=== PATIENT | male | born 1990 | race Caucasian/White ===

== ENCOUNTER 2016-08-24 12:19 | Inpatient (IN) | payer OTHER ==
[~2016-08-24] VITALS: Ht 193 cm; Wt 74.2 kg
[2016-08-24 13:30] VITALS: BP 132/73
[2016-08-24 14:00] VITALS: BP 132/73
[2016-08-24] MEDS ORDERED: CELEXA20 MG PO (14:29)
[2016-08-24] MEDS ORDERED: METHIMAZOLE5 M1 PO (14:31)
[2016-08-24] MEDS ORDERED: ATIVAN1 MG PO (14:32)
[2016-08-24 14:45] LABS: BASO % 0.1 % (0.0-1.0); HEMATOCRIT 36.5 % (42.0-52.0); HEMOGLOBIN 12.6 g/dl (14.0-18.0); LYMPH # 0.8 10*3/uL (1.3-4.4); LYMPH % 7.9 % (27.0-41.0); MEAN CELL VOLUME 86.3 fl (80.0-94.0); MEAN CORPUSCULAR HGB 29.8 pg (27.0-31.0); MEAN CORPUSCULAR HGB CONC 34.5 g/dl (33.0-37.0); MEAN PLATELET VOLUME 9.6 fl (9.6-12.3); MONO # 0.2 10*3/uL (0.1-1.0); MONO % 2.3 % (3.0-9.0); NEUT # 9.2 10*3/uL (2.3-7.9); NEUT % 89.3 % (47.0-73.0); PLATELET COUNT AUTOMATED 260 10*3/uL (130-400); RED BLOOD COUNT 4.23 10*6/uL (4.50-5.90); RED CELL DISTRI WIDTH 11.7 % (0-14.5); WHITE BLOOD COUNT 10.3 10*3/uL (4.8-10.8)
[2016-08-24 14:47] LABS: BILIRUBIN NEGATIVE (NEGATIVE); BLOOD NEGATIVE (NEGATIVE); CLARITY SL CLOUDY (CLEAR); COLOR YELLOW (YELLOW); GLUCOSE NEGATIVE (NEGATIVE); KETONE NEGATIVE (NEGATIVE); LEUKO ESTERASE NEGATIVE (NEGATIVE); NITRITE NEGATIVE (NEGATIVE); PROTEIN NEGATIVE (NEGATIVE); SPECIFIC GRAVITY <= 1.005 (1.005-1.030); UROBILINOGEN 0.2 E.U./dl (0.2-1.0)
[2016-08-24 14:51] LABS: BACTERIA TRACE; EPITHELIAL CELLS 0-2; URINE REFLEX COMMENT NO (NO)
[2016-08-24 14:52] LABS: PROTHROMBIN TIME 10.6 SECONDS (9.0-12.4)
[2016-08-24 15:00] LABS: ALBUMIN 4.1 gm/dl (3.1-4.5); ALKALINE PHOSPHATASE 64 U/L (45-117); BILIRUBIN, TOTAL 0.7 mg/dl (0.2-1.0); BUN 8 mg/dl (7-24); CARBON DIOXIDE 27 mmol/L (21-32); CHLORIDE 105 mmol/L (98-107); EST GLOM FILT AFRICAN AMERICAN > 60 ml/min; GLUCOSE 115 mg/dL (65-99); POTASSIUM 3.5 mmol/L (3.5-5.1); SGOT/AST 33 IU/L (3-35); SGPT/ALT 59 U/L (12-78); SODIUM 139 mmol/L (136-145)
[2016-08-24 15:54] LABS: URINE AMPHETAMINES < 1000 (1000ng/ml); URINE BARBITURATES < 200 (200ng/ml); URINE COCAINE < 300 (300ng/ml)
[2016-08-24 16:00] VITALS: BP 129/66
[2016-08-24 20:00] VITALS: BP 120/59
[2016-08-25 00:05] VITALS: BP 112/56
[2016-08-25 04:45] VITALS: BP 106/62
[2016-08-25 08:00] VITALS: BP 113/57
[2016-08-25 12:00] VITALS: BP 92/42
[2016-08-25 16:00] VITALS: BP 112/53
[2016-08-25 20:00] VITALS: BP 123/57; BP 154/57
[2016-08-26 00:36] VITALS: BP 130/62
[2016-08-26 08:01] VITALS: BP 118/50
[2016-08-26 12:00] VITALS: BP 113/53
[2016-08-26 20:00] VITALS: BP 136/76
[2016-08-27 00:21] VITALS: BP 134/70
[2016-08-27 07:31] LABS: BASO % 0.4 % (0.0-1.0); EOS # 0.1 10*3/uL (0.0-0.4); EOS % 1.1 % (1.0-4.0); HEMATOCRIT 36.1 % (42.0-52.0); HEMOGLOBIN 12.5 g/dl (14.0-18.0); LYMPH # 2.6 10*3/uL (1.3-4.4); LYMPH % 35.2 % (27.0-41.0); MEAN CORPUSCULAR HGB 29.8 pg (27.0-31.0); MEAN CORPUSCULAR HGB CONC 34.6 g/dl (33.0-37.0); MEAN PLATELET VOLUME 10.2 fl (9.6-12.3); MONO # 0.6 10*3/uL (0.1-1.0); NEUT # 4.1 10*3/uL (2.3-7.9); NEUT % 54.9 % (47.0-73.0); PLATELET COUNT AUTOMATED 226 10*3/uL (130-400); RED CELL DISTRI WIDTH 11.5 % (0-14.5); WHITE BLOOD COUNT 7.4 10*3/uL (4.8-10.8)
[2016-08-27 07:50] LABS: EST GLOM FILT AFRICAN AMERICAN > 60 ml/min
[2016-08-27 08:00] VITALS: BP 109/62
[2016-08-27] MEDS ORDERED: VITAMIN B-11 TAB PO (10:41)
[2016-08-27] MEDS ORDERED: NATURE'S BLEND F1 MG PO (10:41)
[2016-08-27] MEDS ORDERED: THERA TABS1 TAB PO (10:41)
== END 2016-08-27 11:23 | disposition home or self-care (01) | DRG 897 ==
LOC: 5E 12:19
PROVIDERS: Internal Medicine; Internal Medicine Hospice and Palliative Medicine
DX: F11.23 Opioid dependence with withdrawal (principal); F19.20 Other psychoactive substance dependence, uncomplicated; G25.81 Restless legs syndrome; M79.1 Myalgia; E03.9 Hypothyroidism, unspecified; F41.1 Generalized anxiety disorder; F32.9 Major depressive disorder, single episode, unspecified; D64.9 Anemia, unspecified; R73.9 Hyperglycemia, unspecified; Z83.3 Family history of diabetes mellitus; Z80.8 Family history of malignant neoplasm of other organs or systems; Z79.899 Other long term (current) drug therapy

== ENCOUNTER 2020-01-10 13:18 | Inpatient (IN) | payer OTHER ==
[~2020-01-10] VITALS: Ht 195.5 cm; Wt 75.1 kg
[~2020-01-10 13:18] MED LIST: ATIVAN1 MG PO; CELEXA20 MG PO; METHIMAZOLE5 M1 PO; NATURE'S BLEND F1 MG PO; THERA TABS1 TAB PO; VITAMIN B-11 TAB PO
[2020-01-10 13:31] VITALS: BP 121/81
[2020-01-10 14:26] LABS: BASO % 0.2 % (0.0-1.0); EOS # 0.3 10*3/uL (0.0-0.4); EOS % 3.6 % (1.0-4.0); HEMATOCRIT 39.6 % (42.0-52.0); LYMPH # 1.9 10*3/uL (1.3-4.4); LYMPH % 22.9 % (27.0-41.0); MEAN CELL VOLUME 88.6 fl (80.0-94.0); MEAN CORPUSCULAR HGB 29.8 pg (27.0-31.0); MEAN CORPUSCULAR HGB CONC 33.6 g/dl (33.0-37.0); MEAN PLATELET VOLUME 9.4 fl (9.6-12.3); MONO # 0.7 10*3/uL (0.1-1.0); MONO % 8.2 % (3.0-9.0); NEUT # 5.4 10*3/uL (2.3-7.9); NEUT % 64.7 % (47.0-73.0); PLATELET COUNT AUTOMATED 358 10*3/uL (130-400); RED BLOOD COUNT 4.47 10*6/uL (4.50-5.90); RED CELL DISTRI WIDTH 11.2 % (0-14.5); WHITE BLOOD COUNT 8.3 10*3/uL (4.8-10.8)
[2020-01-10 14:26] LABS: BILIRUBIN Negative (Negative); BLOOD Negative (Negative); CLARITY Clear (Clear); COLOR Yellow (Yellow); GLUCOSE Negative (Negative); KETONE Negative (Negative); LEUKO ESTERASE Negative (Negative); NITRITE Negative (Negative); PH 6.5 (4.5-8.0); SPECIFIC GRAVITY <= 1.005 (1.001-1.030); UROBILINOGEN 0.2 E.U./dl (0.0-1.0)
[2020-01-10 14:35] LABS: URINE AMPHETAMINES < 1000 (1000ng/ml); URINE BARBITURATES < 200 (200ng/ml); URINE BENZODIAZEPINES > 200 (200ng/ml); URINE CANNABINOIDS (THC) < 50 (50ng/ml); URINE COCAINE < 300 (300ng/ml); URINE METHADONE < 300 (300ng/ml); URINE OPIATES < 300 (300ng/ml)
[2020-01-10 14:37] LABS: RBC 0-2 rbc/hpf (0-2)
[2020-01-10 14:38] LABS: BACTERIA TRACE; EPITHELIAL CELLS 0-2; WBC 0-2 wbc/hpf (0-5)
[2020-01-10 14:39] LABS: URINE PHENCYCLIDINE < 25 (25ng/ml)
[2020-01-10 14:44] LABS: ALKALINE PHOSPHATASE 109 U/L (45-117); BUN 8 mg/dl (7-24); CHLORIDE 102 mmol/L (98-107); CREATININE 0.73 mg/dL (0.70-1.30); POTASSIUM 3.7 mmol/L (3.5-5.1); SGOT/AST 22 IU/L (3-35); SGPT/ALT 40 U/L (12-78); SODIUM 137 mmol/L (136-145); TOTAL PROTEIN 8.1 gm/dL (6.4-8.2)
[2020-01-10 14:59] LABS: ACT PARTIAL THROMBO TIME 30.7 SECONDS (20.0-32.1); INTERNATIONAL NORM RATIO 0.9 (2.0-3.5)
[2020-01-10 15:00] VITALS: BP 119/64
--- NOTE | 2020-01-10 15:00 | NUR ---
29 year old MALE admitted to room # 517 for stabilization. Reports an addiction to HEROIN last used 8 HOURS AGO hours prior to admission. Compliant with admission procedure. Patient denies any anxiety, but is unable to sit still, taps toes to floor continuously, looks about room, unable to focus eyes on nurse during interview. See assessment forms for additional information about patient status.
[2020-01-10] MEDS ORDERED: ESCITALOPRAM OX10 MG PO (15:54)
[2020-01-10] MEDS ORDERED: ALPRAZOLAM0.5 M3 PO (15:56)
[2020-01-10 16:00] VITALS: BP 119/64
--- NOTE | 2020-01-10 16:31 | NUR ---
PATIENT MEETS [facility]. [facility] STAFF SPOKE WITH PATIENT. PATIENT IS UNDECIDED AT THIS TIME ON WHAT HE WANTS TO DO FOR AFTERCARE. [facility] STAFF WILL PROVIDE PATIENT WITH REFERRAL OPTIONS AND A LIST OF AA/NA MEETINGS IN HIS AREA. PORTER HALL B.A. MAGISTRATE JUDGE
--- NOTE | 2020-01-10 17:57 | NUR ---
Patient displaying withdrawal symptoms, including: irritability, anxiousness, restlessness and agitation, complicated by impulsive behavior. Patient scores a 17 ON CIWA scale. Scheduled/PRN medications provided, doctor notified of patient's agitation and AMA potential. Will continue to monitor medication effectiveness.
--- NOTE | 2020-01-10 18:20 | NUR ---
PT PACING IN ROOM REQUESTING CLONIDINE. EDUCATED PT ON MEDS ADMIN FOR [facility]. PROVIDED PT WITH TOWELS.ADVISED HIM I WOULD SPEAK WITH . NOTIFIED DR CRUMP OF PT S/S WITHDRAWAL.
[2020-01-10 20:00] VITALS: BP 141/80
--- NOTE | 2020-01-10 21:09 | NUR ---
PATIENT CURLED UP IN BED. ROCKING BACK AND FOURTH. VERY ANXIOUS. MEDICATED WITH PRN BENDADRYL, TRAZADONE AND MOTRIN. PATIENT C/O HOT AND COLD SWEATS,BODY ACHES. WILL CHECK EFFECTIVENESS.
--- NOTE | 2020-01-10 23:15 | NUR ---
PATIENT STILL REMAINS VERY ANXIOUS. PACING AROUND ROOM/HALLWAY. EARLER MEDICATIONS NOT EFFECTIVE. SCHEDULED SUBUTEX GIVEN AT THIS TIME. WILL CONTINUE TO MONITOR.
[2020-01-11] VITALS: BP 131/83
--- NOTE | 2020-01-11 00:21 | NUR ---
PATIENT ASKING FOR REQUIP FOR RESTLESS LEGS AND ACHES. REQUIP NOT DUE SO ROBAXIN GIVEN AT THIS TIME. WILL CHECK EFFECTIVENESS.
--- NOTE | 2020-01-11 00:24 | NUR ---
FIRST TRAZADONE NOT EFFECTIVE. SECOND DOSE GIVEN AT THIS TIME. WILL CHECK EFFECTIVENESS.
--- NOTE | 2020-01-11 03:47 | NUR ---
PATIENT PACING AROUND ROOM AND IN HALLWAY. VERY ANXIOUS. MEDICATED WITH VISTARIL AND BENADYRL BOTH AT THIS TIME FOR ANXIETY. WILL CONTINUE TO MONITOR.
--- NOTE | 2020-01-11 05:41 | NUR ---
PATIENT REQUESTING REQUIP MEDICATED AT THIS TIME. WILL CHECK EFFECTIVENESS.
[2020-01-11 08:00] VITALS: BP 129/75
--- NOTE | 2020-01-11 11:16 | NUR ---
PT MEDICATED WITH PRN VISTARIL FOR INCREASED ANXIETY AT THIS TIME. INITIAL LIBRIUM TAPER DOSE ALSO ADMINISTERED.
[2020-01-11 12:00] VITALS: BP 122/70
--- NOTE | 2020-01-11 14:28 | NUR ---
ROBAXIN, MOTRIN, BENTYL AND BENADRYL GIVEN PRN PER PT REQUEST FOR RESTLESS LEGS, PINS AND NEEDLES FEELNG AND ABD CRAMPS. CALL LIGHT WITHIN REACH.
--- NOTE | 2020-01-11 14:48 | NUR ---
PT MOTHER CALLED FOR AN UPDATE, UPDATE PROVIDED. QUESTIONS REGARDING OUTPT AND DISCHARGE PLANNING. STATES THEY LIVE IN [place], WILL LEFT [facility] KNOW IF THEY ARE NOT AWARE.
--- NOTE | 2020-01-11 15:28 | NUR ---
PT REPORTS PRN MEDICATIONS NOT EFFECTIVE.
[2020-01-11 16:00] VITALS: BP 126/71
--- NOTE | 2020-01-11 17:33 | NUR ---
PT COMPLAINS OF NAUSEA AND ANXIOUSNESS, PRN VISTARIL AND ZOFRAN GIVEN AT THIS TIME. SEE EMAR.
--- NOTE | 2020-01-11 18:33 | NUR ---
PT REPORTS MEDS NOT EFFECTIVE.
--- NOTE | 2020-01-11 19:27 | NUR ---
PT REQUESTING REQUIP FOR RESTLESS LGS. SEE EMAR.
--- NOTE | 2020-01-11 19:30 | NUR ---
REPORT OBTAINED FROM PREVIOUS RN. ASSUMED CARE OF PATIENT.
--- NOTE | 2020-01-11 19:49 | NUR ---
CHART CHECK COMPLETE.
[2020-01-11 20:00] VITALS: BP 125/73
--- NOTE | 2020-01-11 21:48 | NUR ---
PATIENT IS RESTING IN BED WITH EASY AND REGULAR RESPERS ON ROOM AIR. ASSESSMENT IS COMPLETE WITH NO S/S OF DISTRESS NOTED AT THIS TIME. PATIENT C/O HOT/COLD SWEATS, ANXIETY AND INSOMNIA. PRN BENADRYL, TRAZADONE, AND TYLENOL GIVEN AT THIS TIME FOR C/O. WILL CONTINUE TO MONITOR, SEE INTERVENTIONS.
--- NOTE | 2020-01-11 23:18 | NUR ---
PRN BENTYL, TRAZADONE, MOTRIN, ROBAXIN, AND VISTARIL GIVEN AT THIS TIME FOR PATIENT C/O STOMACH CRAMPS, HEADACHE, BODY ACHES, ANXIETY, AND INSOMNIA. CALL LIGHT IS WITHIN REACH. WILL MONITOR EFFECT. PATIENT REFUSING 0000 VITAL SIGNS AT THIS TIME WELL.
--- NOTE | 2020-01-12 00:18 | NUR ---
PRN MEDICATIONS APPEAR EFFECTIVE. PATIENT RESTING IN BED WITH EASY AND REGULAR RESPERS ON ROOM AIR. CALL LIGHT IS WITHIN REACH, WILL CONTINUE TO MONITOR.
--- NOTE | 2020-01-12 04:00 | NUR ---
SLEEPING, RESPERS EASY AND REGULAR. CALL LIGHT IS WITHIN REACH.
[2020-01-12 08:00] VITALS: BP 109/67
--- NOTE | 2020-01-12 09:30 | NUR ---
PT REQUESTED AND RECEIVED PO ZOFRAN, REQUIP, ROBAXIN, BENTYL AND BENEDRYL PER PRN ORDER FOR C/O NAUSEA, RESTLESS LEGS, MUSCLE ACHES , STOMACH CRAMPS AND ANXIETY. WILL MONITOR EFFECTIVENESS. VSS.
--- NOTE | 2020-01-12 10:30 | NUR ---
PT REPORTS MEDS NOT EFFECTIVE. IN TO SEE PATIENT.
[2020-01-12 12:00] VITALS: BP 121/72
--- NOTE | 2020-01-12 12:16 | NUR ---
IV STARTED TO LEFT AC PER ORDER. IV ZOFRAN GIVEN FOR C/O NAUSEA. WILL MONITOR EFFECTIVENESS. IVF INITIATED AT THIS TIME. WILL CONTINUE TO MONITOR.
--- NOTE | 2020-01-12 13:16 | NUR ---
PT REPORTS SOME RELIEF FROM IV ZOFRAN. WILL CONTINUE TO MONITOR. IVF MAINTAINED.
[2020-01-12 16:00] VITALS: BP 133/66
--- NOTE | 2020-01-12 19:42 | NUR ---
CHART CHECK COMPLETE.
[2020-01-12 20:00] VITALS: BP 121/60
--- NOTE | 2020-01-12 21:51 | NUR ---
ASSUMED CARE OF PATIENT. PATIENT IS AAOX3 RESTING IN BED WITH EASY AND REGULAR RESPERS ON ROOM AIR. ASSESSMENT IS COMPLETE WITH NO S/S OF DISTRESS NOTED AT THIS TIME. PATIENT C/O ANXIETY, INSOMNIA, AND BODY ACHES. PRN BENADRYL, TRAZADONE, MOTRIN, TYLENOL, AND VISTARIL GIVEN AT THIS TIME. BED IS LOW, LOCKED, AND CALL LIGHT IS WITHIN REACH. WILL CONTINUE TO MONITOR, SEE INTERVENTIONS.
--- NOTE | 2020-01-12 22:52 | NUR ---
PRN MOTRIN, TYLENOL, AND VISTARIL EFFECTIVE PER PATIENT. STILL C/O INSOMNIA. WILL CONTINUE TO MONITOR.
--- NOTE | 2020-01-12 23:15 | NUR ---
PRN REQUIP GIVEN FOR C/O RESTLESS LEGS AND TRAZADONE FOR INSOMNIA. CALL LIGHT IS WITHIN REACH. WILL MONITOR EFFECT.
--- NOTE | 2020-01-13 00:15 | NUR ---
PRN MEDICATIONS APPEAR EFFECTIVE. PATIENT IS SLEEPING WITH EASY AND REGULAR RESPERS ON ROOM AIR. CALL LIGHT IS WITHIN REACH.
--- NOTE | 2020-01-13 04:00 | NUR ---
SLEEPING, RESPERS EASY AND REGULAR. CALL LIGHT IS WITHIN REACH.
[2020-01-13 06:25] LABS: BASO % 0.2 % (0.0-1.0); HEMATOCRIT 38.6 % (42.0-52.0); LYMPH # 1.3 10*3/uL (1.3-4.4); LYMPH % 14.1 % (27.0-41.0); MEAN CELL VOLUME 87.5 fl (80.0-94.0); MEAN CORPUSCULAR HGB 30.2 pg (27.0-31.0); MEAN CORPUSCULAR HGB CONC 34.5 g/dl (33.0-37.0); MEAN PLATELET VOLUME 9.6 fl (9.6-12.3); MONO # 0.6 10*3/uL (0.1-1.0); NEUT # 7.2 10*3/uL (2.3-7.9); NEUT % 78.5 % (47.0-73.0); PLATELET COUNT AUTOMATED 379 10*3/uL (130-400); RED BLOOD COUNT 4.41 10*6/uL (4.50-5.90); WHITE BLOOD COUNT 9.2 10*3/uL (4.8-10.8)
[2020-01-13 06:41] LABS: CREATININE 0.83 mg/dL (0.70-1.30)
--- NOTE | 2020-01-13 07:46 | NUR ---
NANCY SHELTON VISTARIAlaina,ROBNINFA FOR WITHDRAW S/S
[2020-01-13 08:00] VITALS: BP 130/76
--- NOTE | 2020-01-13 08:07 | NUR ---
PT VERY LISTLESS, BARRIEINY, MICHELLE, ALHAJI, FOLLOWS COMMANDS, JUMPS RIGHT UP OUT OF BED TO ANSWER HIS PHONE, MEDS GIVEN
--- NOTE | 2020-01-13 08:50 | NUR ---
PRN MEDS EFFECTIVE
[2020-01-13 12:00] VITALS: BP 145/80
--- NOTE | 2020-01-13 12:49 | NUR ---
[facility] STAFF IN TO SEE PATIENT. PATIENT IS GOING TO FOLLOW UP WITH [facility] IN [place] FOR OUTPATIENT TREATMENT. PORTER HALL B.A. INTERNET RETAILER
--- NOTE | 2020-01-13 13:09 | NUR ---
RESIDENT UPDATED ON IV BEING DISLODGED BY PT, OK TO LEAVE OUT AND USE PO ZOFRAN, NOTIFED THEM IF PT DOES NOT TOLERATE
--- NOTE | 2020-01-13 13:10 | NUR ---
PT STILL LYING IN BD, SATING HE TOOK A SHOWER YESTERDAY, "IM TIRED, I HAVE NOT SLEPT FOR 3 DAYS" PT REFUSES TO GET OOB, ALERT AND ORIENTED, MAKES NO ATTEMPT TO CONVERSE, WILL NOT EVEN OPEN EYES WHEN QUESTIONED, "IM JUST TIRED"
[2020-01-13 16:00] VITALS: BP 142/76
--- NOTE | 2020-01-13 16:07 | NUR ---
PT SAYS THAT HE HAD SOME SOUP FOR LUNCH AND HAS WALKED ALITTLE BIT
--- NOTE | 2020-01-13 17:22 | NUR ---
PT HAD NO MOTIVATION TODAY, STATING HE IS TIRED FATHER HAS CALLED IN, QUESTIONTING OUTPT REHAB AND WONDERING WAHT WILL "MAKE' PT BE CONPLIANT ABOUT STAYING OFF THE DRUGS, ASKING FRO A SCRIPT FOR SUBOXONE CALL DEFERRED TO [facility]
[2020-01-13 20:00] VITALS: BP 148/90
--- NOTE | 2020-01-13 21:53 | NUR ---
ASSUMED CARE OF PATIENT. PATIENT IS AAOX3 RESTING IN BED WITH EASY AND REGULAR RESPERS ON ROOM AIR. ASSESSMENT IS COMPLETE WITH NO S/S OF DISTRESS NOTED AT THIS TIME. PATIENT C/O ANXIETY AND BODY ACHES. PRN MOTRIN, TYLENOL, AND VISTARIL GIVEN AT THIS TIME. SPOKE WITH PATIENT ABOUT OUTPATIENT TREATMENT WHEN LEAVING, PATIENT STATES "I WILL PROBABLY HAVE TO DO OUTPATIENT SO I CAN KEEP MY JOB. IT IS REALLY HARD TO GET INTO INPATIENT D/T STATE INSURANCE." INFORMED PATIENT OF INPATIENT FACILITIES SUCH THE [facility], [facility], AND THE [employer]. PATIENT SEEMED INTERESTED IN THE [employer]. 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 OFFERED PATIENT SHOWER AND CHANGE OF CLOTHES/BED LINEN, PATIENT REFUSED. BED IS LOW, LOCKED, AND CALL LIGHT IS WITHIN REACH. WILL CONTINUE TO MONITOR, SEE INTERVENTIONS.
--- NOTE | 2020-01-13 22:53 | NUR ---
PRN MEDICATIONS EFFECTIVE PER PATIENT. CALL LIGHT IS WITHIN REACH.
--- NOTE | 2020-01-13 23:22 | NUR ---
CHART CHECK COMPLETE.
[2020-01-14] VITALS: BP 127/76
[2020-01-14 08:00] VITALS: BP 103/61
--- NOTE | 2020-01-14 08:00 | NUR ---
LYING IN BED WITH EYES CLOSED. RESPONDED TO VERBAL STIMULI. NO C/O VOICED. REFUSED LOVENOX. 1:1 GIVEN WITHOUT EFFECT. CALL LIGHT IN REACH.
[2020-01-14 12:00] VITALS: BP 127/75
[2020-01-14] MEDS ORDERED: ATARAX,VISTARIL50 MG PO (15:01)
--- NOTE | 2020-01-14 15:29 | NUR ---
DISCHARGED TO HOME WITH AUNT. DISCHARGE INSTRUCTIONS GIVEN AND PT VERALIZED UNDERSTANDING. IN STABLE CONDITION.
== END 2020-01-14 16:19 | disposition home or self-care (01) | DRG 773 ==
LOC: ED 13:18 → EDHOLD 14:13 → 5E 14:13
PROVIDERS: Emergency Medicine; ADMIT Family Medicine; ATTEND Family Medicine
DX: F11.23 Opioid dependence with withdrawal (principal); F13.230 Sedative, hypnotic or anxiolytic dependence with withdrawal, uncomplicated; G25.81 Restless legs syndrome; K59.00 Constipation, unspecified; R00.0 Tachycardia, unspecified; E05.90 Thyrotoxicosis, unspecified without thyrotoxic crisis or storm; F41.1 Generalized anxiety disorder; F32.9 Major depressive disorder, single episode, unspecified; R61 Generalized hyperhidrosis; Z83.3 Family history of diabetes mellitus; Z80.8 Family history of malignant neoplasm of other organs or systems; Z79.899 Other long term (current) drug therapy

== ENCOUNTER 2020-03-21 11:43 | Emergency (ER) | payer OTHER ==
[~2020-03-21] VITALS: Ht 182.8 cm; Wt 72.6 kg
[~2020-03-21 11:43] MED LIST changes: +ALPRAZOLAM0.5 M3 PO; +ATARAX,VISTARIL50 MG PO; +ESCITALOPRAM OX10 MG PO
[2020-03-21 12:48] LABS: BASO % 0.1 % (0.0-1.0); EOS % 0.6 % (1.0-4.0); HEMATOCRIT 36.4 % (42.0-52.0); LYMPH # 1.4 10*3/uL (1.3-4.4); MEAN CELL VOLUME 88.6 fl (80.0-94.0); MEAN CORPUSCULAR HGB 30.4 pg (27.0-31.0); MEAN CORPUSCULAR HGB CONC 34.3 g/dl (33.0-37.0); MEAN PLATELET VOLUME 10.2 fl (9.6-12.3); MONO # 0.6 10*3/uL (0.1-1.0); MONO % 8.7 % (3.0-9.0); NEUT # 4.6 10*3/uL (2.3-7.9); NEUT % 69.5 % (47.0-73.0); PLATELET COUNT AUTOMATED 255 10*3/uL (130-400); RED BLOOD COUNT 4.11 10*6/uL (4.50-5.90); RED CELL DISTRI WIDTH 11.4 % (0-14.5); WHITE BLOOD COUNT 6.7 10*3/uL (4.8-10.8)
[2020-03-21 13:01] LABS: BUN 11 mg/dl (7-24); CHLORIDE 110 mmol/L (98-107); CREATININE 0.83 mg/dL (0.70-1.30); POTASSIUM 4.2 mmol/L (3.5-5.1); SODIUM 141 mmol/L (136-145)
== END 2020-03-21 13:58 | disposition home or self-care (01) ==
LOC: ED 11:43
PROVIDERS: Emergency Medicine
DX: S01.112A Laceration without foreign body of left eyelid and periocular area, initial encounter (principal); I95.2 Hypotension due to drugs; F41.9 Anxiety disorder, unspecified; F32.9 Major depressive disorder, single episode, unspecified; I25.10 Atherosclerotic heart disease of native coronary artery without angina pectoris; E05.90 Thyrotoxicosis, unspecified without thyrotoxic crisis or storm; F17.200 Nicotine dependence, unspecified, uncomplicated; Z79.899 Other long term (current) drug therapy; W18.09XA Striking against other object with subsequent fall, initial encounter; Y93.89 Activity, other specified; Y92.89 Other specified places as the place of occurrence of the external cause; Y99.8 Other external cause status